=== PATIENT | female | born 1945 | race Caucasian/White ===

== ENCOUNTER → 2016-10-10 | Outpatient (CLI) | payer OTHER | END | disposition home or self-care (01) | LOC: EDSEX 14:53 → GMAM 14:53 | PROVIDERS: ATTEND Family Medicine | DX: R29.898 Other symptoms and signs involving the musculoskeletal system (principal); M79.1 Myalgia ==

== ENCOUNTER → 2017-09-12 | Outpatient (CLI) | payer OTHER | LOC: GMAM 13:42 | PROVIDERS: ATTEND Family Medicine | DX: E53.8 Deficiency of other specified B group vitamins (principal) ==

== ENCOUNTER → 2017-09-19 | Outpatient (CLI) | payer OTHER ==
--- NOTE | 2017-09-22 08:25 | US ---
EXAM DESCRIPTION: Soft Tissue,Head/Neck CLINICAL HISTORY: D37.032 palpable mass left submandibular region. History of remote breast cancer COMPARISON: None Available. TECHNIQUE: Grayscale imaging with color Doppler imaging. FINDINGS: In the left submandibular region there is a wider than tall echogenic focus that measures 2.0 x 2.8 x 1.1 cm it demonstrates normal vascularity. This does not have the typical appearance of a benign or hypertrophic lymph node. Almost certainly this represents a prominent left submandibular salivary gland. A distinct hypoechoic or separate lesion adjacent to or within this structure is not apparent. A similar structure and little different from the opposite side. In the right side of the neck is noted IMPRESSION: Prominent left submandibular gland, similar to that seen on the opposite right side. If persistent over an extended period of time contrast enhanced CT evaluation for further delineation may be of value. A separate focal mass or adenopathy is not evident. Electronically signed by: Juvenal Grigsby MD 09/22/2017 8:24 AM [employer]
--- NOTE | 2017-09-22 08:26 | RAD ---
EXAM DESCRIPTION: Hand,Right 3 Views CLINICAL HISTORY: MASS OF SKIN COMPARISON: None Available. TECHNIQUE: AP, LATERAL, AND OBLIQUE FINDINGS: Three-view right hand shows no fracture or dislocation. There is no bone lesion. A definite soft tissue mass is not identified. There are no significant arthritic changes. There is no radiopaque foreign body. IMPRESSION: 1. Mild degenerative changes otherwise negative hand. Electronically signed by: Juvenal Grigsby MD 09/22/2017 8:25 AM [facility]
== END ==
LOC: US 08:53
PROVIDERS: ATTEND Family Medicine
DX: R22.9 Localized swelling, mass and lump, unspecified (principal); D37.032 Neoplasm of uncertain behavior of the submandibular salivary glands; I10 Essential (primary) hypertension; F34.1 Dysthymic disorder; R73.09 Other abnormal glucose; M71.341 Other bursal cyst, right hand; D51.3 Other dietary vitamin B12 deficiency anemia; Z85.3 Personal history of malignant neoplasm of breast

== ENCOUNTER 2017-10-01 16:28 | Inpatient (IN) | payer OTHER ==
[2017-10-01] MEDS ORDERED: PROMETHAZINE HCL INJ 12.5 MG in SODIUM CHLORIDE 0.9% 50ML 50 ML IVPB ONE (17:04)
[2017-10-01] MEDS ORDERED: SODIUM CHLORIDE 0.9% 1000ML 1,000 ML IVS ONE ×2 (17:04→21:27)
[2017-10-01] MEDS ORDERED: SODIUM CHLORIDE 0.9% 50ML 50 ML ONE ×2 (17:07→21:31)
[2017-10-01] MEDS ORDERED: PROMETHAZINE HCL INJ 25 MG/ML VIAL ONE (17:07)
--- NOTE | 2017-10-01 17:17 | ED.PDOC ---
History of Present Illness - General Chief Complaint: GI Problem Stated Complaint: vomiting Time Seen by Provider: 10/01/17 16:47 Source: patient Exam Limitations: no limitations Additional Information: PT C/O N/V AND FEELING BAD. SHE WENT TO HER PCP TODAY WHO REPORTEDLY DID A CXR WHICH APPARENTLY SHOWED SOME PERIHILAR TYPE INFILTRATES. SHE WAS STARTED ON ZITHROMAX AND TAMIFLU BUT HAS BEEN UNABLE TO HOLD FLUIDS OR HER MEDICATION DOWN. HER POTASSIUM WAS REPORTEDLY "LOW" AT THE OFFICE ALSO. - History of Present Illness Timing/Duration: other - 3 DAYS Severity: moderate Worsening Factors: nothing Associated Symptoms: nausea/vomiting Allergies/Adverse Reactions: Allergies Codeine Adverse Reaction (Verified 10/01/17 16:48) Other Morphine Adverse Reaction (Verified 10/01/17 16:48) Other Review of Systems - Review of Systems Constitutional: States: chills, fever EENTM: States: throat pain Respiratory: States: cough, other - B[employer]. Denies: short of breath, wheezing Cardiology: Denies: chest pain, palpitations, syncope Gastrointestinal/Abdominal: States: nausea, vomiting. Denies: abdominal pain, diarrhea Genitourinary: States: no symptoms reported Musculoskeletal: States: no symptoms reported Skin: States: no symptoms reported Neurological: States: no symptoms reported Endocrine: States: no symptoms reported Hematologic/Lymphatic: States: no symptoms reported Past Medical History (General) - Patient Medical History Hx Hypertension: Yes Hx Cancer: Yes - right breast Surgical History: cholecystectomy, Hysterectomy - Vaccination History Hx Influenza Vaccination: Yes - Social History Hx Tobacco Use: No Hx Alcohol Use: No Hx Substance Use: No Hx Substance Use Treatment: No Hx Depression: No Family Medical History - Family History Mother Family History: Unknown Physical Exam - Physical Exam General Appearance: No apparent distress, Other - NON TOXIC BUT DOES NOT APPEAR TO FEEL WELL. Eye Exam: bilateral normal Ears, Nose, Throat: hearing grossly normal, normal pharynx, other - N TM'S Neck: non-tender, full range of motion, supple Respiratory: lungs clear, normal breath sounds, no respiratory distress Cardiovascular/Chest: regular rate, rhythm, no murmur Gastrointestinal/Abdominal: normal bowel sounds, non tender, soft, no organomegaly Back Exam: normal inspection, no CVA tenderness Extremity: normal range of motion, no calf tenderness Neurologic: alert, normal mood/affect Skin Exam: normal color, warm/dry Lymphatic: no adenopathy Progress - Progress Progress: 10/01/17 18:07 NO VOMITING WHILE IN ED. Departure - Departure Clinical Impression: Dehydration, Viral syndrome Hypertension Qualifiers: Hypertension type: essential hypertension Qualified Code(s): I10 - Essential ( primary) hypertension Time of Disposition: 18:09 - D/W DANO MATT WILL ADMIT Disposition: Admit Patient Condition: Fair Departure Forms: ED Discharge - Pt. Copy, Patient Portal Self Enrollment Referrals: Juvenal Azevedo MD [Primary Care Provider] - 1-2 Weeks
--- NOTE | 2017-10-01 18:23 | HP ---
SUPERVISING PHYSICIAN: Jett Bernard MD CHIEF COMPLAINT: Nausea and vomiting. HISTORY OF PRESENT ILLNESS: This is a 72-year-old female patient who has had a 3 day history of upper respiratory type symptoms and flu symptoms including fever, muscle aches and pains for 3 days. She has also had some mild nausea with it. She went to her primary care physician, Juvenal Azevedo MD, today and at her physician's office, she was found to have questionable perihilar infiltrates and was given azithromycin and Tamiflu. She got her medications filled and took one dose of each. Within a few minutes of taking those, she vomited those up. She was also called by his office and told that she had low potassium and due to her nausea and vomiting as well as the low potassium, was told to go to the Emergency Room. In the Emergency Room, she had a temperature to 100.4 with WBC 4.5. Sodium 133, potassium 2.8. Urine had 40 ketones with a large amount of blood and 3 to 5 urine RBCs. Her chest x-ray was done at [facility] and we are awaiting the report at this time. She was given fluids in the Emergency Room as well as some Phenergan and I was called for admission to the hospital. PAST MEDICAL HISTORY: 1. Myocardial infarction in 2009. 2. Hypertension. 3. History of breast cancer. 4. 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 PAST SURGICAL HISTORY: 1. Right mastectomy. 2. Cholecystectomy. 3. Hysterectomy. 4. Back surgery of L5 and S1. 5. Breast reconstruction surgery. OUTPATIENT MEDICATIONS: Per the EMR and awaiting verification. ALLERGIES: CODEINE, DEMEROL, MORPHINE. SOCIAL HISTORY: She lives at [facility]. She is . She quit smoking over 35 years ago. She denies any ETOH or illicit drug use. REVIEW OF SYSTEMS: GENERAL: Positive for chills, fever and fatigue. Negative for weight changes. HEENT: Positive for sinus symptoms, nasal drainage, sore throat. Negative for ear pain, vision changes. RESPIRATORY: Positive for cough. Negative for wheezing or shortness of breath. CARDIAC: Negative for chest pain, palpitations or tachycardia. GASTROINTESTINAL: Positive for nausea, vomiting. Negative for diarrhea or abdominal pain. GENITOURINARY: Negative for hematuria, dysuria or nocturia. MUSCULOSKELETAL: Positive for arthralgias, myalgias. NEUROLOGIC: Negative for headache, dizziness or seizures. SKIN: Negative for lesions or rashes. PHYSICAL EXAMINATION: VITAL SIGNS: Temperature 100.4. Heart rate 92. Blood pressure 127/76. Respiratory rate 20. O2 saturation 95% on room air. GENERAL: This is a 72-year-old, female patient who is lying in her hospital bed. She looks moderately ill. HEENT: Normocephalic, atraumatic. Pupils are equal and reactive. There is clear nasal drainage. Oropharynx is clear. Oral mucous membranes are moist. NECK: Supple without mass. RESPIRATORY: Essentially clear to auscultation bilaterally, but diminished at the bases. No wheezing noted. CARDIOVASCULAR: Regular rate and rhythm. GASTROINTESTINAL: Abdomen is soft, diffusely, but mildly tender, nondistended. Bowel sounds are positive. EXTREMITIES: No cyanosis, clubbing or edema. NEUROLOGIC: Awake, alert and oriented times three. SKIN: Warm and dry. LABORATORY: Labs and films are as per history of present illness. ASSESSMENT: 1. Nausea, vomiting, dehydration. 2. Hypokalemia. 3. Flu-like symptoms with fever. 4. Acute bronchitis with concerns for developing pneumonia, most likely community acquired. She had been seen at her primary care physician's office today and due to nausea and vomiting, she is unable to keep down fluids, medications and antibiotics. 5. Hypertension. 6. Hematuria. 7. History of breast cancer. PLAN: We will admit the patient to the hospital. I have ordered blood cultures in addition to a urine culture. She has been given antiemetics and fluids. I will put her on clear liquids tonight and advance her diet as she tolerates it. I have also ordered a flu swab and we will give her extra potassium. We will recheck her electrolytes in the morning as well as chest x- ray. I have ordered a proton pump inhibitor for ulcer prophylaxis. Her home medications will be restarted tomorrow morning. She is on Eliquis and if we are unable to start those in the morning, we will need to address anticoagulation. I have started her on azithromycin and Rocephin. We will continue to monitor the patient closely and follow as needed. Dr. Bernard is the collaborating physician and available for consultation. #[id number] [facility]
[2017-10-01] MEDS ORDERED: ONDANSETRON INJ 4 MG/2 ML VIAL IV PRN (21:08)
[2017-10-01] MEDS ORDERED: KCL 40 MEQ/WATER FOR INJECTION 40 MEQ in PREMIX BAG 1 BAG IVPB ONE (21:27)
[2017-10-01] MEDS ORDERED: ENOXAPARIN SODIUM 40 MG/0.4 ML SYG SUBCU SCH (21:30)
[2017-10-01] MEDS ORDERED: cefTRIAXone SODIUM 1 GM VIAL ONE (21:31)
[2017-10-01] MEDS ORDERED: AZITHROMYCIN IV 500 MG VIAL IVPB ONE (21:31)
[2017-10-01] MEDS ORDERED: SODIUM CHLORIDE 0.9% 250ML 250 ML ONE (21:31)
[2017-10-01] MEDS ORDERED: KCL 40 MEQ/WATER FOR INJECTION 100 ML IVPB ONE (21:38)
[2017-10-01] MEDS ORDERED: SODIUM CHLORIDE 0.9% 1000ML 1,000 ML ONE (21:38)
[2017-10-01] MEDS: IV SET AND CAP CHANGE INJ INJ SCH (21:40)
[2017-10-01] MEDS: DEX 5% W/NACL 0.9% 1000ML 1,000 ML IVS PRN (21:40)
[2017-10-01] MEDS: PANTOPRAZOLE SODIUM IV 40 MG VIAL IV SCH (21:47)
[2017-10-01] MEDS: HYDROmorphone HCL INJ 2 MG/ML VIAL IV PRN (22:16)
[2017-10-01] MEDS: cefTRIAXone SODIUM 1 GM in SODIUM CHL 0.9% 50ML MIN-BAG+ 50 ML IVPB SCH (22:18)
[2017-10-01] MEDS: AZITHROMYCIN IV 500 MG in SODIUM CHLORIDE 0.9% 250ML 250 ML IVPB SCH (23:08)
[2017-10-02] MEDS ORDERED: ACETAMINOPHEN 325 MG TAB ONE ×2 (02:14)
[2017-10-02] MEDS: ACETAMINOPHEN 325 MG TAB PO PRN ×4 (02:23→21:43)
[2017-10-02] MEDS: HYDROmorphone HCL INJ 2 MG/ML VIAL IV PRN ×2 (03:33→08:30)
[2017-10-02] MEDS: DEX 5% W/NACL 0.9% 1000ML 1,000 ML IVS PRN ×2 (07:54→15:43)
[2017-10-02] MEDS ORDERED: KCL 40 MEQ/WATER FOR INJECTION 40 MEQ in PREMIX BAG 1 BAG IVPB ONE (08:01)
[2017-10-02] MEDS ORDERED: KCL 40 MEQ/WATER FOR INJECTION 100 ML IVPB ONE (08:15)
[2017-10-02] MEDS: OSELTAMIVIR 75 MG CAP PO SCH ×2 (08:20→21:13)
[2017-10-02] MEDS ORDERED: CLONAZEPAM PO PRN (08:46)
[2017-10-02] MEDS ORDERED: APIXABAN 2.5 MG TAB PO ONE (08:50)
[2017-10-02] MEDS: APIXABAN 2.5 MG TAB PO SCH ×2 (08:57→21:13)
[2017-10-02] MEDS ORDERED: NON-FORMULARY MEDICATION 1 EA MIS (Valsartan-Hydrochlorothiazide [Valsartan/Hydrochlorothi PO SCH (09:00)
[2017-10-02] MEDS ORDERED: SODIUM CHLORIDE 0.9% (FLUSH) 10 ML SYG IV SCH (09:00)
[2017-10-02] MEDS ORDERED: OSELTAMIVIR 75 MG CAP PO SCH (09:00)
[2017-10-02] MEDS ORDERED: VALSARTAN 80 MG TAB ONE (09:12)
[2017-10-02] MEDS ORDERED: hydroCHLOROthiazide 12.5 MG CAP ONE (09:12)
[2017-10-02] MEDS: Wellbutrin XL 150 MG TAB PO SCH ×2 (09:13→21:13)
[2017-10-02] MEDS: METOPROLOL SUCCINATE XL 100 MG TAB PO SCH (09:13)
[2017-10-02] MEDS: hydroCHLOROthiazide 12.5 MG CAP PO SCH (09:20)
[2017-10-02] MEDS: VALSARTAN 80 MG TAB PO SCH (09:20)
[2017-10-02] MEDS: HYDROcodone 5MG/APAP 325MG 1 EA TAB PO PRN (11:57)
--- NOTE | 2017-10-02 13:13 | PN ---
SUPERVISING PHYSICIAN: Jett Bernard MD DATE: 10/02/17 SUBJECTIVE: The patient is sleeping, awakens easily. She continues to feel very weak and tired. Her is at the bedside. She has no complaints of nausea or vomiting, shortness of breath or chest pain. She actually says that she feels like she might eat some lunch today. OBJECTIVE: VITAL SIGNS: Temperature has been as high as 102. Pulse 80. Blood pressure 166/91. Respiratory rate 18. O2 saturation 93% on room air. LUNGS: Essentially clear to auscultation bilaterally. She does have a few mild scattered rhonchi in the apices and she is slightly diminished at the bases. CARDIAC: Regular rate and rhythm. GASTROINTESTINAL: Abdomen is soft, nondistended, nontender. Bowel sounds are positive. EXTREMITIES: No cyanosis, clubbing or edema. NEUROLOGIC: Awake, alert and oriented times three. LABORATORY: Sodium 136 with potassium 2.9, chloride 105, carbon dioxide 23, BUN 10, creatinine 0.7. Serum osmolality 272.9, glucose 132, calcium 8. WBCs 3.9 with hemoglobin 12.7, hematocrit 38.1. Preliminary blood cultures are negative. Influenza swab was positive for influenza A. All other labs and films have been reviewed via the EMR. ASSESSMENT: 1. Influenza A with continued fever. 2. Nausea, vomiting, dehydration, most likely from #1, improved. 3. Acute bronchitis with concerns for developing pneumonia, most likely community acquired. She had been seen at her primary care physician's office on date of admission, but due to nausea and vomiting, she is unable to keep down fluids, medications and antibiotics. 4. Hypokalemia, not improved in spite of replacement. 5. Hypertension. 6. Hematuria. 7. History of breast cancer. PLAN: We will continue present supportive care. I have again given her some potassium and we will recheck her labs in the morning. I will advance her to a bland diet, but cautioned her to go slowly. Her home medications have been restarted. We will continue with her azithromycin and Rocephin and monitor her cultures. IV fluids will need to be discontinued once she takes p.o. fluids as I think her dehydration has mostly resolved. Her Eliquis has been restarted. We will continue to monitor the patient closely and follow as needed. Dr. Bernard is the collaborating physician and available for consultation. #[id number] [facility]
[2017-10-02] MEDS ORDERED: SODIUM CHL 0.9% 50ML MIN-BAG+ 50 ML IVPB ONE (19:29)
[2017-10-02] MEDS ORDERED: SODIUM CHLORIDE 0.9% 250ML 250 ML ONE (19:30)
[2017-10-02] MEDS ORDERED: cefTRIAXone SODIUM 1 GM VIAL ONE (19:30)
[2017-10-02] MEDS ORDERED: AZITHROMYCIN IV 500 MG VIAL IVPB ONE (19:31)
[2017-10-02] MEDS: PANTOPRAZOLE SODIUM IV 40 MG VIAL IV SCH (21:14)
[2017-10-02] MEDS: cefTRIAXone SODIUM 1 GM in SODIUM CHL 0.9% 50ML MIN-BAG+ 50 ML IVPB SCH (21:15)
[2017-10-02] MEDS: AZITHROMYCIN IV 500 MG in SODIUM CHLORIDE 0.9% 250ML 250 ML IVPB SCH (21:51)
[2017-10-02] MEDS ORDERED: IBUPROFEN 400 MG TAB PO PRN (22:01)
[2017-10-02] MEDS: TEMAZEPAM 15 MG CAP PO PRN (22:06)
[2017-10-03] MEDS: DEX 5% W/NACL 0.9% 1000ML 1,000 ML IVS PRN ×2 (02:30→11:07)
--- NOTE | 2017-10-03 07:10 | RAD ---
EXAM DESCRIPTION: Chest,2 Views CLINICAL HISTORY: bronchitis COMPARISON: None available FINDINGS: The heart is at the upper limits of normal size. Mediastinal contours are otherwise unremarkable. There is no airspace consolidation or pleural effusion. The bronchovascular markings are within normal limits, and the lungs are not hyperinflated. There is no pneumothorax or acute fracture. IMPRESSION: Negative exam. Electronically signed by: Sharath Martínez MD 10/03/2017 7:09 AM [facility]
[2017-10-03] MEDS ORDERED: KCL 40 MEQ/WATER FOR INJECTION 40 MEQ in PREMIX BAG 1 BAG IVPB ONE (08:03)
[2017-10-03] MEDS ORDERED: KCL 40 MEQ/WATER FOR INJECTION 100 ML IVPB ONE (08:16)
[2017-10-03] MEDS: Wellbutrin XL 150 MG TAB PO SCH ×2 (08:19→20:42)
[2017-10-03] MEDS: OSELTAMIVIR 75 MG CAP PO SCH ×2 (08:20→20:42)
[2017-10-03] MEDS: APIXABAN 2.5 MG TAB PO SCH ×2 (08:20→20:42)
[2017-10-03] MEDS: hydroCHLOROthiazide 12.5 MG CAP PO SCH (08:20)
[2017-10-03] MEDS: VALSARTAN 80 MG TAB PO SCH (08:20)
[2017-10-03] MEDS: METOPROLOL SUCCINATE XL 100 MG TAB PO SCH (08:20)
[2017-10-03] MEDS: ACETAMINOPHEN 500 MG TAB PO PRN ×2 (10:05→17:31)
[2017-10-03] MEDS: HYDROcodone 5MG/APAP 325MG 1 EA TAB PO PRN ×2 (13:16→21:07)
--- NOTE | 2017-10-03 13:59 | PN ---
SUPERVISING PHYSICIAN: Jett Bernard MD DATE: 10/03/17 SUBJECTIVE: The patient is lying in bed. She complains of weakness and back pain. She is very tearful and frustrated because she is sick. She denies chest pain, nausea, vomiting or diarrhea. She is tolerating her food without problems. OBJECTIVE: VITAL SIGNS: T-max 24 hours is 100.3. Pulse rate 64. Blood pressure 153/92. Respiratory rate 18. O2 saturation 95%. LUNGS: Essentially clear to auscultation bilaterally, slightly diminished at the bases. CARDIAC: Regular rate and rhythm. GASTROINTESTINAL: Abdomen is soft, nondistended, nontender. Bowel sounds are positive. EXTREMITIES: No cyanosis, clubbing or edema. NEUROLOGIC: Awake, alert and oriented times three. She is very tearful and somewhat depressed. LABORATORY: White count has dropped to 2.8. Hemoglobin and hematocrit are stable at 13.6 and 40.9. Sodium 142, potassium 2.8, chloride 106, carbon dioxide 27, BUN 7, creatinine 0.52, glucose 120. Preliminary blood cultures show no growth after 24 hours. Preliminary urine culture shows no growth after 24 hours. Chest x-ray per radiologic interpretation shows a negative exam. All other labs and films have been reviewed via the EMR. ASSESSMENT: 1. Influenza A with continued fever. 2. Nausea, vomiting, dehydration, most likely from #1, improved. 3. Acute bronchitis with concerns for developing pneumonia, most likely community acquired. She had been seen at her primary care physician's office on date of admission, but due to nausea and vomiting, she is unable to keep down fluids, medications and antibiotics. 4. Hypokalemia, not improved in spite of replacement. 5. Hypertension. 6. Hematuria. 7. History of breast cancer. 8. Leukopenia with no documented history. She is on an experimental drug for breast cancer. PLAN: We will continue present supportive care. I have replaced her potassium today with oral potassium as well as a potassium rider. She has gotten potassium replacement daily and I am not quite sure why she is continuing to have a low potassium in spite of replacement. We will need to follow that. She is on an experimental medication for breast cancer, so we may need to get in touch with her oncologist to find out if she has a chronic leukopenia. Otherwise, that will need a close followup at some point. I have increased her pain medications as well as her anxiety medications. She is taking p.o. fluids well, so I will discontinue her IV fluids. I ordered lab for in the morning. We will continue to monitor the patient closely and follow as needed. Dr. Bernard is the collaborating physician and available for consultation. [facility][id number] [facility]
[2017-10-03] MEDS ORDERED: SODIUM CHLORIDE 0.9% 250ML 250 ML ONE (19:44)
[2017-10-03] MEDS ORDERED: SODIUM CHL 0.9% 50ML MIN-BAG+ 50 ML IVPB ONE (19:44)
[2017-10-03] MEDS ORDERED: cefTRIAXone SODIUM 1 GM VIAL ONE (19:45)
[2017-10-03] MEDS ORDERED: AZITHROMYCIN IV 500 MG VIAL IVPB ONE (19:46)
[2017-10-03] MEDS: PANTOPRAZOLE SODIUM IV 40 MG VIAL IV SCH (20:41)
[2017-10-03] MEDS: cefTRIAXone SODIUM 1 GM in SODIUM CHL 0.9% 50ML MIN-BAG+ 50 ML IVPB SCH (20:47)
[2017-10-03] MEDS: TEMAZEPAM 15 MG CAP PO PRN (21:06)
[2017-10-03] MEDS: AZITHROMYCIN IV 500 MG in SODIUM CHLORIDE 0.9% 250ML 250 ML IVPB SCH (21:26)
[2017-10-04] MEDS: HYDROcodone 5MG/APAP 325MG 1 EA TAB PO PRN ×2 (05:27→16:41)
[2017-10-04] MEDS ORDERED: MAGNESIUM SULFATE PREMIX 2GM 2 GM in PREMIX BAG 1 BAG IVPB ONE (06:30)
[2017-10-04] MEDS ORDERED: MAGNESIUM SULFATE PREMIX 2GM 50 ML IVPB ONE (06:38)
[2017-10-04] MEDS: POTASSIUM CHLORIDE 20 MEQ TAB PO SCH (08:16)
[2017-10-04] MEDS ORDERED: POTASSIUM CHLORIDE 20 MEQ TAB PO ONE (08:17)
[2017-10-04] MEDS ORDERED: KCL 40 MEQ/WATER FOR INJECTION 40 MEQ in PREMIX BAG 1 BAG IVPB ONE (08:17)
[2017-10-04] MEDS: LEVALBUTEROL NEBS 1.25 MG/3 ML VIAL INH PRN ×2 (08:41→13:20)
[2017-10-04] MEDS ORDERED: KCL 40 MEQ/WATER FOR INJECTION 100 ML IVPB ONE (09:11)
[2017-10-04] MEDS ORDERED: SODIUM CHLORIDE 0.9% 500ML 500 ML ONE (09:31)
[2017-10-04] MEDS ORDERED: SODIUM CHLORIDE 0.9% 500ML 500 ML IVS ONE (09:33)
[2017-10-04] MEDS: APIXABAN 2.5 MG TAB PO SCH ×2 (09:40→21:09)
[2017-10-04] MEDS: OSELTAMIVIR 75 MG CAP PO SCH ×2 (09:40→21:10)
[2017-10-04] MEDS: VALSARTAN 80 MG TAB PO SCH (09:40)
[2017-10-04] MEDS: METOPROLOL SUCCINATE XL 100 MG TAB PO SCH (09:41)
[2017-10-04] MEDS: Wellbutrin XL 150 MG TAB PO SCH ×2 (09:41→21:09)
[2017-10-04] MEDS: guaiFENesin ER TAB 600 MG TAB PO SCH ×2 (12:28→21:09)
--- NOTE | 2017-10-04 14:23 | PN ---
DATE: 10/04/17 SUPERVISING PHYSICIAN: Jett Bernard M.D. SUBJECTIVE: The patient is lying in her bed. She feels much better today, but she is continuing to have a productive cough. She denies shortness of breath, wheezing or chest pain. No abdominal pain, nausea or vomiting. OBJECTIVE: VITAL SIGNS: Temperature 99.3, pulse rate 58, blood pressure 152/84 , respiratory rate 20, O2 sat is 93% on room air. RESPIRATORY: Essentially clear to auscultation bilaterally. There are occasional scattered rhonchi that clear with coughing. CARDIAC: Regular rate and rhythm. GASTROINTESTINAL: Abdomen is soft, nondistended, non-tender. Bowel sounds are positive. EXTREMITIES: No cyanosis, clubbing or edema. NEUROLOGIC: She is awake, alert and oriented times three. LABORATORY: White count has improved to 3.5 with hemoglobin 12.5, hematocrit 38.1. Sodium 137, potassium 2.8, chloride 102, carbon dioxide 26, BUN 6, creatinine 0.66. Preliminary blood cultures show no growth after 48 hours. All other labs and films have been reviewed via the EMR. ASSESSMENT: 1. Influenza A with continued low grade fever. 2. Hypokalemia that is not improving in spite of replacement. 3. Nausea, vomiting, dehydration, most likely from #1 that has improved. 4. Acute bronchitis with concerns for developing pneumonia, most likely community acquired. She had seen her primary care physician's office on date of admission, but due to nausea and vomiting, she was unable to keep down fluids, medications and antibiotics. 5. Hypertension. 6. Hematuria. 7. History of breast cancer. 8. Leukopenia with no documented history. PLAN: We will continue present supportive care. I have discontinued her Hydrochlorothiazide and I will again give her some IV potassium replacement as well as some oral potassium replacement. Her magnesium was on the low side of normal so she received some magnesium and then I gave her the potassium replacement. I will check her potassium and magnesium at 5:00 this afternoon. Initially I was told that she was on an experimental drug for breast cancer, but that had been in the past and she is presently on no medications for breast cancer. Her leukopenia has improved but still continues to be low. We may need to touch base with her oncologist at some point. I have also ordered routine lab for in the morning. She is improving clinically although she still has a low grade temperature. Hopefully if she continues to improve, she can be discharged home tomorrow. I have also added some Mucinex and encouraged her to ambulate in the hallways with the mask as well as doing good pulmonary hygiene. Dr. Bernard is the collaborating physician available for consultation. #[id number] [facility]
[2017-10-04] MEDS ORDERED: SODIUM CHL 0.9% 50ML MIN-BAG+ 50 ML IVPB ONE (20:00)
[2017-10-04] MEDS ORDERED: SODIUM CHLORIDE 0.9% 250ML 250 ML ONE (20:00)
[2017-10-04] MEDS ORDERED: cefTRIAXone SODIUM 1 GM VIAL ONE (20:00)
[2017-10-04] MEDS ORDERED: AZITHROMYCIN IV 500 MG VIAL IVPB ONE (20:01)
[2017-10-04] MEDS: IV SET AND CAP CHANGE INJ INJ SCH (21:09)
[2017-10-04] MEDS: PANTOPRAZOLE SODIUM IV 40 MG VIAL IV SCH (21:10)
[2017-10-04] MEDS: SODIUM CHLORIDE 0.9% (FLUSH) 10 ML SYG IV PRN ×2 (21:10→21:50)
[2017-10-04] MEDS: TEMAZEPAM 15 MG CAP PO PRN (21:10)
[2017-10-04] MEDS: cefTRIAXone SODIUM 1 GM in SODIUM CHL 0.9% 50ML MIN-BAG+ 50 ML IVPB SCH (21:11)
[2017-10-04] MEDS: AZITHROMYCIN IV 500 MG in SODIUM CHLORIDE 0.9% 250ML 250 ML IVPB SCH (21:50)
[2017-10-05] MEDS: TEMAZEPAM 15 MG CAP PO PRN
[2017-10-05 06:10] VITALS: TEMP 100
[2017-10-05] MEDS: POTASSIUM CHLORIDE 20 MEQ TAB PO SCH (07:28)
[2017-10-05] MEDS: VALSARTAN 80 MG TAB PO SCH (09:39)
[2017-10-05] MEDS: OSELTAMIVIR 75 MG CAP PO SCH (09:40)
[2017-10-05] MEDS: Wellbutrin XL 150 MG TAB PO SCH (09:40)
[2017-10-05] MEDS: APIXABAN 2.5 MG TAB PO SCH (09:40)
[2017-10-05] MEDS: METOPROLOL SUCCINATE XL 100 MG TAB PO SCH (09:40)
[2017-10-05] MEDS: guaiFENesin ER TAB 600 MG TAB PO SCH (09:40)
[2017-10-05 09:52] VITALS: O2SAT 96
[2017-10-05 15:09] VITALS: BP 172/89
--- NOTE | 2017-10-05 20:09 | DS ---
SUPERVISING PHYSICIAN: Jett Bernard M.D. DISCHARGE DIAGNOSIS: 1. Influenza A with continued low-grade fever. 2. Hypokalemia that has improved after discontinuing her Hydrochlorothiazide. 3. Nausea, vomiting and dehydration most likely from #1 that has resolved. 4. Acute bronchitis with concerns for developing pneumonia most likely community acquired. She had seen her primary care physician on the date of admission but due to her nausea and vomiting she was unable to keep down fluids, medications and antibiotics. 5. Hypertension. 6. Hematuria. 7. History of breast cancer. 8. Leukopenia with no documented history that has improved. HISTORY OF PRESENT ILLNESS: This is a 72 year-old female patient who 3 days prior to admission had upper respiratory symptoms as well as flu-like symptoms, including fever, muscle aches and pain. She had some mild nausea with it. She saw her primary care physician, Dr. Juvenal Azevedo, and she was found to have a questionable perihilar infiltrate and was given azithromycin with Tamiflu. She got her medication filled and took 1 dose of each. Within a few minutes of taking those, she vomited those up. She was also contacted by his office that her potassium was low and due to the nausea and vomiting as well as the hypokalemia, she was told to go to the Emergency Room. In the Emergency Room, she had a temperature up to 100.4 with WBC of 4.5. Her sodium was 133, potassium 2.8. Urine had 40 ketones with a large amount of blood and 3 to 5 urine RBCs. Her chest x-ray was done at [facility] and was found to have some perihilar infiltrates that could be pneumonia. She was given fluids in the Emergency Room as well as some Phenergan. I was called for admission to the hospital. HOSPITAL COURSE: She showed very slow improvement each day and continued to have temperature each day, and the last 48 hours has had a low-grade fever of 99.3 to 100. She completed 4 days of Tamiflu as well as azithromycin and Rocephin. Her diet was advanced without any issues. She daily had potassium around 2.8 to 2.9 and was given replacement each day. Yesterday, her Hydrochlorothiazide was stopped and she was given potassium replacement and this morning her potassium is 3.8. Her other chemistries are all within normal limits except her serum osmolality is slightly low at 273.8. She also had WBCs that trended downward as low as 2.8, but over the last 2 days her WBCs were 3.5 yesterday and 4.1 today. She does have a history of breast cancer. She has been ambulating in her room as well as in the hallways with a mask. Her chest x -ray on 10/03/17 was negative for any acute cardiopulmonary processes. She has clinically improved to the point where she can be discharged home with close followup with her primary care physician. DISCHARGE PLAN: The patient will be discharged home in stable condition. She is to resume her previous diet and to increase her activity as tolerated. She has a followup with Dr. Azevedo on 10/09/17 at 8:45 AM. It is recommended that she have a CBC and a CMP to evaluate her WBCs and her potassium. I will send her home on 2 additional days of Tamiflu as well as 7 days of Cefdinir. I will also give her some potassium chloride 20 mEq daily until she sees Dr. Azevedo. Her prescription of Valsartan/Hydrochlorothiazide was discontinued and she was given a prescription for Valsartan 320 mg daily as her blood pressure has remained stable during her hospital stay. She is to return to the hospital or call Dr. Azevedo's office with any further problems or complications. DISCHARGE MEDICATIONS: 1. Hydrocodone. 2. Eliquis. 3. Clonazepam. 4. Metoprolol succinate. 5. Wellbutrin. 6. Guaifenesin. 7. Temazepam. 8. Cefdinir. 9. Tamiflu. 10. Valsartan. 11. Potassium chloride. Dr. Bernard is the collaborating physician available for consultation. #[id number] [facility]
== END 2017-10-05 12:55 | disposition home or self-care (01) | DRG 640 ==
LOC: ER 16:28 → MS 18:19 → OBSVTOIN 18:19
PROVIDERS: ADMIT Nurse Practitioner Acute Care; ATTEND Nurse Practitioner Acute Care
DX: E86.0 Dehydration (principal); J09.X1 Influenza due to identified novel influenza A virus with pneumonia; E87.6 Hypokalemia; R31.29 Other microscopic hematuria; J20.9 Acute bronchitis, unspecified; D72.819 Decreased white blood cell count, unspecified; I10 Essential (primary) hypertension; Z85.3 Personal history of malignant neoplasm of breast; I25.2 Old myocardial infarction; Z79.02 Long term (current) use of antithrombotics/antiplatelets; Z88.5 Allergy status to narcotic agent; Z87.891 Personal history of nicotine dependence

== ENCOUNTER → 2017-10-01 | Outpatient (CLI) | payer OTHER | LOC: GMAM 09:32 | PROVIDERS: ATTEND Family Medicine | DX: R50.9 Fever, unspecified (principal) ==

== ENCOUNTER → 2017-10-22 | Outpatient (CLI) | payer OTHER | LOC: GMAM 10:39 | PROVIDERS: ATTEND Family Medicine | DX: R07.89 Other chest pain (principal) ==